=== PATIENT | male | born 1995 | race Caucasian/White ===

== ENCOUNTER 2017-09-15 13:46 | Outpatient (CLI) | payer SELFPAY ==
[2014-03-12 22:02] VITALS: BP 129/68
--- NOTE | 2017-09-16 06:54 | Diagnostic Imaging Report ---
VICKI CARROLL [facility] [address] [facility].[address] [id number] Report Submission Date: Sep 15, 2017 3:51:15 PM CDT Patient Study Name: LUISA LEHMAN Date: Sep 15, 2017 1:48:33 PM CDT Modality Type: DX Gender: M Description: LOWER EXTREMITY : 89 Institution: [facility] Physician: VICKI CARROLL Examination: Plain film right foot History: INJURY AFTER FALL (Hx) / ITS.REASON INJURY LATERAL FOOT PAIN (DICOM Hx ) / ITS.REASON INJURY LATERAL FOOT PAIN (Pt comments) Findings: 3 views of the right foot demonstrates linear lucency involving the base of the 5th metatarsal. No other fracture or dislocation. No soft tissue swelling. No joint effusion. Impression: Nondisplaced fracture base 5th metatarsal. Electronically signed on Sep 15, 2017 3:51:15 PM CDT by: Chris FERNÁNDEZ
== END 2017-09-15 13:48 ==
LOC: RAD 13:46
PROVIDERS: ATTEND Family Medicine
DX: M79.671 Pain in right foot (principal)
CPT/HCPCS: 73630